=== PATIENT | male | born 1995 | race Caucasian/White ===

== ENCOUNTER → 2020-12-03 14:24 | Outpatient (CLI) | payer OTHER, SELFPAY ==
--- NOTE | 2020-12-03 14:40 | XR_ITS ---
PROCEDURE: XR HIP RT 2-3V W/PELVIS CLINICAL INDICATION: BL hip pain COMPARISON: No exams were available for comparison FINDINGS: No fracture or dislocation is evident. No significant degenerative change. No lytic or blastic change. Unremarkable soft tissues. IMPRESSION: No acute findings. Dictated by: Justine Dueñas 12/03/2020 17:15 Justine Dueñas in [place] 12/03/2020 17:15
--- NOTE | 2020-12-03 14:40 | XR_ITS ---
PROCEDURE: XR KNEE RT 4V weightbearing CLINICAL INDICATION: BL knee pain Limited range of motion, no trauma COMPARISON: CR XR KNEE LT 4V from 12/03/2020 FINDINGS: There is minimal narrowing medial compartment. There is no fracture. There is moderate lateral patellar tilt. There is no joint space effusion. IMPRESSION: Moderate lateral patellar tilt. Dictated by: Justine Dueñas 12/03/2020 17:21 Justine Dueñas in [place] 12/03/2020 17:21
--- NOTE | 2020-12-03 14:40 | XR_ITS ---
PROCEDURE: XR HIP LT 2-3V W/PELVIS CLINICAL INDICATION: bilateral hip pain Bilateral hip pain, no trauma COMPARISON: No exams were available for comparison FINDINGS: No fracture or dislocation is evident. No significant degenerative change. No lytic or blastic change. Unremarkable soft tissues. IMPRESSION: No acute findings. Dictated by: Justine Dueñas 12/03/2020 17:13 Justine Dueñas in [place] 12/03/2020 17:13
--- NOTE | 2020-12-03 14:40 | XR_ITS ---
PROCEDURE: XR KNEE LT 4V nonweightbearing CLINICAL INDICATION: BL knee pain Limited motion, no trauma COMPARISON: No exams were available for comparison FINDINGS: No fracture or dislocation. No lytic or blastic change. There is normal mineralization. The joint spaces are well-preserved. No significant degenerative/arthritic changes. No erosive changes evident. Other findings:None. IMPRESSION: No acute findings. Dictated by: Justine Dueñas 12/03/2020 17:14 Justine Dueñas in [place] 12/03/2020 17:14
--- NOTE | 2020-12-03 14:40 | XR_ITS ---
PROCEDURE: XR SHOULDER RT MIN 2V CLINICAL INDICATION: BL shoulder pain COMPARISON: No exams were available for comparison FINDINGS: There is no fracture. There is slight upward tilt of the glenoid which gives appearance of narrowing of the glenohumeral articulation on [place]hey view. This is likely positional but of unknown clinical significance. Correlate clinically. No lytic or blastic change. There is normal mineralization. The joint spaces are well-preserved. No significant degenerative/arthritic changes. No erosive changes evident. Other findings:None. IMPRESSION: No acute findings. Other findings as described above Dictated by: Justine Dueñas 12/03/2020 17:19 Justine Dueñas in [place] 12/03/2020 17:19
--- NOTE | 2020-12-03 14:40 | XR_ITS ---
PROCEDURE: XR SHOULDER LT MIN 2V CLINICAL INDICATION: XR shoulder COMPARISON: No exams were available for comparison FINDINGS: No fracture or dislocation. No lytic or blastic change. There is normal mineralization. The joint spaces are well-preserved. No significant degenerative/arthritic changes. No erosive changes evident. Other findings:There is slight upward tilt of the glenoid uncertain significance, likely positional. IMPRESSION: No acute findings. Dictated by: Justine Dueñas 12/03/2020 17:18 Justine Dueñas in [place] 12/03/2020 17:18
== END ==
PROVIDERS: PCP Pain Medicine Interventional Pain Medicine; Visit Provider Orthopaedic Surgery
DX: M25.562 Pain in left knee (principal); M25.561 Pain in right knee; M25.512 Pain in left shoulder; M25.511 Pain in right shoulder; M25.552 Pain in left hip; M25.551 Pain in right hip
CPT/HCPCS: 73030; 73502; 73564